=== PATIENT | male | born 1950 | race Caucasian/White ===

== ENCOUNTER 2019-03-31 13:48 | Emergency (ER) | payer MEDICARE ==
[~2019-03-31] VITALS: Ht 182.9 cm; Wt 110.9 kg
[2019-03-31 14:58] LABS: BASO # 0.1 (0.02-0.10); EOS # 0.3 (0.04-0.40); EOS % 2.9 % (0.0-4.0); HEMATOCRIT 44.7 % (42.0-52.0); HEMOGLOBIN 15.4 g/dL (13.5-18.0); LYMPH# 3.1 (1.50-4.00); MEAN CELL VOLUME 87 fl (78-100); MEAN CORPUSCULAR HEMOGLOBIN 30 pg (27-31); MEAN CORPUSCULAR HGB CONC 35 g/dL (33-37); MEAN PLATELET VOLUME 9.5 fl (7.4-10.4); MONO # 0.4 (0.20-0.80); NEU # 5.7 (1.40-6.50); PLATELET COUNT 235 K/mm3 (130-400); RED BLOOD COUNT 5.14 M/mm3 (4.20-5.60); RED CELL DISTRIBUTION WIDTH 12.7 % (11.5-14.5); WHITE BLOOD COUNT 9.4 K/mm3 (4.8-10.8)
[2019-03-31 15:08] LABS: ALBUMIN 3.9 g/dL (3.4-4.8); POTASSIUM 3.7 mmol/L (3.5-5.1); SODIUM 139 mmol/L (136-145)
[2019-03-31 15:10] LABS: CALCIUM 9.4 mg/dL (8.3-10.5)
[2019-03-31 15:11] LABS: GLUCOSE 180 mg/dL (75-110); TOTAL PROTEIN 7.3 g/dL (6.2-8.1)
[2019-03-31 15:12] LABS: CARBON DIOXIDE 23 mmol/L (23-31)
[2019-03-31 15:13] LABS: TOTAL BILIRUBIN 0.6 mg/dL (0.2-1.2)
[2019-03-31 15:16] LABS: AST-SGOT 12 U/L (5-34)
[2019-03-31 15:17] LABS: ALT/SGPT 18 U/L (0-55)
[2019-03-31 15:23] LABS: TROPONIN-I < 0.03 ng/mL (<0.030)
[2019-03-31 17:28] VITALS: BP 119/73
== END 2019-03-31 16:26 | disposition other institution (70) ==
LOC: ED 13:48
PROVIDERS: Nurse Practitioner Family
DX: I63.89 Other cerebral infarction (principal); R25.2 Cramp and spasm; F17.210 Nicotine dependence, cigarettes, uncomplicated; Z98.890 Other specified postprocedural states

== ENCOUNTER → 2019-04-08 | Outpatient (CLI) | payer MEDICARE ==
[2019-04-06 11:06] VITALS: BP 116/73
[~2019-04-08] MED LIST: ASPIRIN 32325 MG/TAB PO; LISINOPRIL20 MG PO; NICOTINE21 MG/24 H TD; SIMVASTATIN10 M1 PO
== END ==
LOC: LAB 10:19
DX: I67.81 Acute cerebrovascular insufficiency (principal)

== ENCOUNTER 2019-05-27 13:00 | Outpatient (RCR) | payer MEDICARE ==
[2019-04-06 11:06] VITALS: BP 116/73
== END 2019-05-27 13:30 | disposition still patient (30) ==
LOC: PT 13:00
DX: I63.9 Cerebral infarction, unspecified (principal)

== ENCOUNTER → 2019-07-31 | Outpatient (CLI) | payer MEDICARE ==
[2019-04-06 11:06] VITALS: BP 116/73
[2019-07-31 15:14] LABS: BASO # 0.1 (0.02-0.10); EOS # 0.4 (0.04-0.40); EOS % 3.4 % (0.0-4.0); HEMATOCRIT 44.3 % (42.0-52.0); HEMOGLOBIN 15.1 g/dL (13.5-18.0); LYMPH# 3.4 (1.50-4.00); MEAN CELL VOLUME 88 fl (78-100); MEAN CORPUSCULAR HEMOGLOBIN 30 pg (27-31); MEAN CORPUSCULAR HGB CONC 34 g/dL (33-37); MEAN PLATELET VOLUME 9.6 fl (7.4-10.4); MONO # 0.8 (0.20-0.80); PLATELET COUNT 286 K/mm3 (130-400); RED BLOOD COUNT 5.03 M/mm3 (4.20-5.60); RED CELL DISTRIBUTION WIDTH 12.9 % (11.5-14.5); WHITE BLOOD COUNT 10.6 K/mm3 (4.8-10.8)
[2019-07-31 15:18] LABS: ALBUMIN 4.3 g/dL (3.4-4.8); POTASSIUM 4.4 mmol/L (3.5-5.1)
[2019-07-31 15:19] LABS: CALCIUM 8.9 mg/dL (8.3-10.5)
[2019-07-31 15:20] LABS: TOTAL PROTEIN 7.8 g/dL (6.2-8.1)
[2019-07-31 15:22] LABS: TOTAL BILIRUBIN 0.5 mg/dL (0.2-1.2)
[2019-07-31 16:18] LABS: ERYTHROCYTE SEDIMENTATION RATE 41 mm/hr (0-20)
[2019-07-31 22:38] LABS: TESTOSTERONE 403 ng/dL (221-716)
== END ==
LOC: LAB 14:51
PROVIDERS: Internal Medicine
DX: Z12.5 Encounter for screening for malignant neoplasm of prostate (principal); I10 Essential (primary) hypertension; N52.9 Male erectile dysfunction, unspecified; E78.2 Mixed hyperlipidemia; R20.2 Paresthesia of skin